=== PATIENT | female | born 1955 | race Caucasian/White ===

== ENCOUNTER 2018-04-12 10:06 | Inpatient (IN) | payer OTHER ==
[2018-04-12] MEDS: CEFAZOLIN 2 GM/50 ML (PMX) 50 ML IVPB (06:00)
[2018-04-12] MEDS: LACTATED RINGER'S 1,000 ML IV* (07:00)
[2018-04-12] MEDS ORDERED: PROPOFOL 20 ML (11:00)
[2018-04-12] MEDS ORDERED: FENTAnyl 50 MCG/ML VIAL (11:00)
[2018-04-12] MEDS ORDERED: CEFAZOLIN 1 GM INJ (11:00)
[2018-04-12] MEDS ORDERED: MIDAZOLAM 1 MG/ML 2 ML INJ (11:00)
[2018-04-12] MEDS ORDERED: NEOSTIGMINE 3 MG/3 ML SYRINGE (11:00)
[2018-04-12] MEDS ORDERED: GLYCOPYRROLATE 0.4 MG INJ (11:00)
[2018-04-12] MEDS ORDERED: ROCURONIUM 50 MG INJ (11:00)
[2018-04-12] MEDS ORDERED: morphine SULFATE/PF (10 MG/10 ML) INJ (11:01)
[2018-04-12] MEDS ORDERED: DEXAMETHASONE 4 MG/ML 1 ML INJ (11:01)
[2018-04-12] MEDS ORDERED: ONDANSETRON 4 MG INJ (11:01)
[2018-04-12] MEDS: DEXAMETHASONE 1 MG TAB PO (11:04)
[2018-04-12] MEDS: GABAPENTIN 300 MG CAP PO ×2 (11:04→21:14)
[2018-04-12] MEDS: traMADol 50 MG TAB PO (11:06)
[2018-04-12] MEDS ORDERED: POLYMYXIN/BACITRACIN 1L IRRIG (12:23)
[2018-04-12] MEDS: TRANEXAMIC ACID 1,000 MG in DEXTROSE 5% 100 ML IVPB (12:30)
[2018-04-12] MEDS: THROMBIN 5000 UNIT VIAL (12:30)
[2018-04-12] MEDS: CA CHLORIDE 10% 10 ML SYRINGE (12:30)
[2018-04-12] MEDS ORDERED: BUPIVACAINE 0.75%/DEXT (SPINAL) 2 ML INJ (12:34)
[2018-04-12] MEDS: POLYMYXIN/BACITRACIN 1L IRRIG (13:13)
[2018-04-12] MEDS: SOD CHLORIDE 0.9% 100 ML, TRANEXAMIC ACID 3,000 MG IRR (13:14)
[2018-04-12] MEDS: BUPIVACAINE 0.5% (SDV) 30 ML, morphine SULFATE (PF) 8 MG, EPINEPHrine 0.3 MG, KETOROLAC... IRR (13:14)
[2018-04-12] MEDS ORDERED: LABETALOL HCL 20MG INJ IV (13:30)
[2018-04-12] MEDS ORDERED: hydrALAzine 20 MG INJ IV (13:30)
[2018-04-12] MEDS ORDERED: HYDROmorphONE 1 MG/5 ML IV SYRINGE IV ×3 (13:30)
[2018-04-12] MEDS ORDERED: MEPERIDINE 25 MG INJ IV (13:30)
[2018-04-12] MEDS ORDERED: ALBUTEROL 0.083% (NEB) 2.5 MG/3 ML AMP HHN (13:30)
[2018-04-12] MEDS ORDERED: NALOXONE (0.4 MG/ML) INJ IV (13:30)
[2018-04-12] MEDS ORDERED: TRIMETHOBENZAMIDE 100 MG/ML VIAL IM (13:30)
[2018-04-12] MEDS ORDERED: OXYCODONE/ACETAMINOPHEN (5/325) TAB PO ×3 (13:30→14:30)
[2018-04-12] MEDS ORDERED: FENTAnyl 50 MCG/ML VIAL IV ×3 (13:30)
[2018-04-12] MEDS ORDERED: IPRATROPIUM (NEB) 0.5 MG/2.5 ML AMP HHN (13:30)
[2018-04-12] MEDS ORDERED: MIDAZOLAM 1 MG/ML 2 ML INJ IV (13:30)
[2018-04-12] MEDS ORDERED: DIPHENHYDRAMINE 50 MG INJ IV ×2 (13:30→14:30)
[2018-04-12] MEDS ORDERED: EPHEDrine SULFATE 50 MG/5 ML SYG IV (13:30)
[2018-04-12] MEDS ORDERED: morphine 2 MG INJ IV ×2 (14:30)
[2018-04-12] MEDS ORDERED: KETOROLAC 15 MG INJ IV (14:30)
[2018-04-12] MEDS ORDERED: ZOLPIDEM 5 MG TAB PO (14:30)
[2018-04-12] MEDS ORDERED: ACETAMINOPHEN 500 MG TAB PO (14:30)
[2018-04-12] MEDS ORDERED: MAGNESIUM HYDROXIDE 30ML CUP PO (14:30)
[2018-04-12 14:37] LABS: ADD MAN DIFF? NO
[2018-04-12 14:38] LABS: WHITE BLOOD COUNT 14.4 10^3/ul (4.8-10.8)
[2018-04-12 14:38] LABS: BASOPHIL # 0.1 10^3/ul (0.0-0.1); BASOPHILS % 0.6 % (0.0-2.0); EOSINOPHILS # 0.1 10^3/ul (0.0-0.5); EOSINOPHILS % 0.6 % (0.0-7.0); HEMOGLOBIN 9.8 g/dl (12.0-16.0); LYMPHOCYTES # 1.7 10^3/ul (0.8-2.9); MEAN CORPUSCULAR HGB CONC 32.7 g/dl (32.0-37.0); MEAN CORPUSCULAR VOLUME 91.7 fl (82.0-101.0); MEAN PLATELET VOLUME 9.3 fl (7.4-10.4); MONOCYTE # 0.4 10^3/ul (0.3-0.9); MONOCYTES % 2.6 % (0.0-11.0); NEUTROPHILS % 83.2 % (39.0-77.0); PLATELET COUNT 303 10^3/UL (140-415); RED BLOOD COUNT 3.27 10^6/ul (4.20-5.40); RED CELL DISTRIBUTION WIDTH 12.6 % (11.5-14.5)
[2018-04-12] MEDS ORDERED: CEFAZOLIN 1 GM/50 ML (PMX) 50 ML IVPB (15:14)
[2018-04-12 15:17] LABS: HOLD TRANSMISSIONS 1
[2018-04-12] MEDS: CEFAZOLIN 1 GM/50 ML (PMX) 50 ML IVPB (15:17)
[2018-04-12] MEDS: TRANEXAMIC ACID 1,000 MG in DEXTROSE 5% 100 ML IV (15:17)
[2018-04-12] MEDS: ONDANSETRON 4 MG INJ IV ×2 (16:12→20:02)
[2018-04-12] MEDS: DEXAMETHASONE 2 MG TAB PO (17:04)
[2018-04-12] MEDS: LACTATED RINGER'S 1,000 ML IV (17:05)
[2018-04-12] MEDS: SENNA/DOCUSATE NA (8.6MG/50MG) TAB PO (21:14)
[2018-04-13] MEDS: CEFAZOLIN 1 GM/50 ML (PMX) 50 ML IVPB ×2 (00:30→09:37)
[2018-04-13] MEDS: DEXAMETHASONE 2 MG TAB PO ×3 (00:31→12:33)
[2018-04-13] MEDS: ONDANSETRON 4 MG INJ IV (03:03)
[2018-04-13] MEDS: LACTATED RINGER'S 1,000 ML IV ×2 (03:09→11:00)
[2018-04-13 05:35] LABS: WHITE BLOOD COUNT 15.7 10^3/ul (4.8-10.8)
[2018-04-13 05:35] LABS: ABNORMAL IP MESSAGE 1; ADD MAN DIFF? NO; BASOPHILS % 0.1 % (0.0-2.0); HEMATOCRIT 30.6 % (37.0-47.0); HEMOGLOBIN 9.8 g/dl (12.0-16.0); LYMPHOCYTES # 0.6 10^3/ul (0.8-2.9); LYMPHOCYTES % 3.6 % (15.0-51.0); MEAN CORPUSCULAR HEMOGLOBIN 29.6 pg (29.0-33.0); MEAN CORPUSCULAR VOLUME 92.4 fl (82.0-101.0); MEAN PLATELET VOLUME 9.8 fl (7.4-10.4); MONOCYTE # 0.9 10^3/ul (0.3-0.9); MONOCYTES % 5.4 % (0.0-11.0); NEUTROPHIL # 14.2 10^3/ul (1.6-7.5); NEUTROPHILS % 90.3 % (39.0-77.0); PLATELET COUNT 329 10^3/UL (140-415); RED BLOOD COUNT 3.31 10^6/ul (4.20-5.40); RED CELL DISTRIBUTION WIDTH 12.4 % (11.5-14.5)
[2018-04-13 05:36] LABS: POSITIVE DIFF @See below
[2018-04-13] MEDS: LACTATED RINGER'S 1,000 ML IV* (07:00)
[2018-04-13] MEDS: FERROUS SULFATE (EC) 325 MG TAB PO (09:02)
[2018-04-13] MEDS: SENNA/DOCUSATE NA (8.6MG/50MG) TAB PO (09:03)
[2018-04-13] MEDS: LORATADINE 10 MG TAB PO (09:03)
[2018-04-13] MEDS: ASPIRIN 81 MG TAB PO (09:03)
[2018-04-13] MEDS: OXYCODONE/ACETAMINOPHEN (5/325) TAB PO (09:04)
== END 2018-04-13 15:30 | disposition home or self-care (01) | DRG 470 ==
LOC: REC 10:06 → MS1 16:39
PROVIDERS: Orthopaedic Surgery
PROC: 0SR904A Replacement of Right Hip Joint with Ceramic on Polyethylene Synthetic Substitute, Uncemented, Open Approach (ICD-10-PCS; principal; 2018-04-12 12:29)
DX: M16.52 Unilateral post-traumatic osteoarthritis, left hip (principal); S72.002S Fracture of unspecified part of neck of left femur, sequela; Z85.048 Personal history of other malignant neoplasm of rectum, rectosigmoid junction, and anus; Z92.3 Personal history of irradiation
CPT/HCPCS: 72170; 73530; 85025; 86999; 87086; 97110; 97116; 97161; 97530